=== PATIENT | female | born 1995 | race Caucasian/White ===

== ENCOUNTER 2017-11-01 10:12 | Emergency (ER) | payer OTHER ==
[2017-11-01 11:12] LABS: HEMATOCRIT 39.8 % (36.0-47.0); HEMOGLOBIN 12.4 g/dl (12.0-15.5); MEAN CORPUSCULAR HEMOGLOBIN 22.7 pg (27.0-33.0); MEAN CORPUSCULAR HGB CONC 31.2 g/dl (32.0-36.5); MEAN CORPUSCULAR VOLUME 72.8 fl (80.0-96.0); PLATELET COUNT, AUTOMATED 329 10^3/uL (150-450); RED BLOOD COUNT 5.47 10^6/uL (4.00-5.40); RED CELL DISTRIBUTION WIDTH 15.1 % (11.5-14.5); WHITE BLOOD COUNT 8.8 10^3/uL (4.0-10.0)
[2017-11-01 11:35] LABS: HCG, SERUM QUANTITATIVE 43 MIU/ML
== END 2017-11-01 13:13 | disposition home or self-care (01) ==
LOC: M ED 10:12
DX: O20.0 Threatened abortion (principal); Z88.2 Allergy status to sulfonamides; Z79.899 Other long term (current) drug therapy
CPT/HCPCS: 76801

== ENCOUNTER → 2017-11-02 | Outpatient (CLI) | payer OTHER ==
[2017-11-03 11:17] LABS: HCG, SERUM QUANTITATIVE 28 MIU/ML
== END ==
LOC: M LAB 14:59
DX: N93.8 Other specified abnormal uterine and vaginal bleeding (principal)
CPT/HCPCS: 84702

== ENCOUNTER → 2018-08-28 | Outpatient (CLI) | payer OTHER ==
[~2018-08-28] MED LIST: LEXA1TAB2 PO
[2018-08-28 14:00] LABS: ESTRADIOL 212.8 PG/ML; LUTEINIZING HORMONE 27.7 mIU/mL; PROGESTERONE 16.93 NG/ML
== END ==
LOC: M LAB 12:36
PROVIDERS: ATTEND Obstetrics & Gynecology Reproductive Endocrinology
DX: E28.9 Ovarian dysfunction, unspecified (principal)

== ENCOUNTER → 2018-09-19 | Outpatient (REF) | payer OTHER ==
[2018-09-19 12:57] LABS: ESTRADIOL 261.4 PG/ML; HCG, SERUM QUANTITATIVE < 1.0 MIU/ML; LUTEINIZING HORMONE 10.3 mIU/mL; PROGESTERONE 4.01 NG/ML; THYROID STIMULATING HORMONE 0.957 uIU/ML (0.358-3.740)
[2018-09-19 12:58] LABS: FOLLICLE STIMULATING HORMONE 7.1 mIU/mL
== END ==
LOC: M LABDRAW1 08:58
PROVIDERS: ATTEND Obstetrics & Gynecology Reproductive Endocrinology
DX: E28.9 Ovarian dysfunction, unspecified (principal)

== ENCOUNTER → 2018-09-24 | Outpatient (CLI) | payer OTHER ==
[2018-09-24 11:36] LABS: HCG, SERUM QUANTITATIVE < 1.0 MIU/ML
[2018-09-24 12:59] LABS: PROGESTERONE 0.46 NG/ML
[2018-09-24 13:00] LABS: LUTEINIZING HORMONE 7.5 mIU/mL
[2018-09-24 13:01] LABS: ESTRADIOL 550.8 PG/ML
[2018-09-24 13:02] LABS: FOLLICLE STIMULATING HORMONE 5.9 mIU/mL
== END ==
LOC: M LAB 10:16
PROVIDERS: ATTEND Obstetrics & Gynecology Reproductive Endocrinology
DX: E28.9 Ovarian dysfunction, unspecified (principal)

== ENCOUNTER → 2018-10-16 | Outpatient (CLI) | payer OTHER ==
[2018-10-16 09:36] LABS: ESTRADIOL 58.5 PG/ML; FOLLICLE STIMULATING HORMONE 10.7 mIU/mL; HCG, SERUM QUANTITATIVE < 1.0 MIU/ML; LUTEINIZING HORMONE 9.4 mIU/mL; PROGESTERONE 0.32 NG/ML
== END ==
LOC: M LAB 08:22
PROVIDERS: ATTEND Obstetrics & Gynecology Reproductive Endocrinology
DX: E28.9 Ovarian dysfunction, unspecified (principal)

== ENCOUNTER → 2018-10-22 | Outpatient (CLI) | payer OTHER ==
[2018-10-22 12:26] LABS: ESTRADIOL 45.5 PG/ML; LUTEINIZING HORMONE 11.9 mIU/mL; PROGESTERONE 0.21 NG/ML
== END ==
LOC: M LAB 11:04
PROVIDERS: ATTEND Obstetrics & Gynecology Reproductive Endocrinology
DX: E28.9 Ovarian dysfunction, unspecified (principal)

== ENCOUNTER → 2018-10-24 | Outpatient (CLI) | payer OTHER ==
[2018-10-24 12:12] LABS: ESTRADIOL 119.8 PG/ML; LUTEINIZING HORMONE 11.5 mIU/mL; PROGESTERONE 0.24 NG/ML
== END ==
LOC: M LAB 11:01
PROVIDERS: ATTEND Obstetrics & Gynecology Reproductive Endocrinology
DX: E28.9 Ovarian dysfunction, unspecified (principal)

== ENCOUNTER → 2018-11-08 | Outpatient (CLI) | payer OTHER ==
[2018-11-08 09:54] LABS: HCG, SERUM QUANTITATIVE < 1.0 MIU/ML
[2018-11-08 10:02] LABS: PROGESTERONE 3.09 NG/ML
== END ==
LOC: M LAB 09:00
PROVIDERS: ATTEND Obstetrics & Gynecology Reproductive Endocrinology
DX: E28.9 Ovarian dysfunction, unspecified (principal)

== ENCOUNTER → 2018-11-19 | Outpatient (CLI) | payer OTHER ==
[2018-11-19 12:20] LABS: ESTRADIOL 83.6 PG/ML; LUTEINIZING HORMONE 0.8 mIU/mL; PROGESTERONE 0.21 NG/ML
== END ==
LOC: M LAB 11:14
PROVIDERS: ATTEND Obstetrics & Gynecology Reproductive Endocrinology
DX: E28.9 Ovarian dysfunction, unspecified (principal)

== ENCOUNTER → 2018-11-21 | Outpatient (CLI) | payer OTHER ==
[2018-11-21 12:02] LABS: ESTRADIOL 67.4 PG/ML; LUTEINIZING HORMONE 1.8 mIU/mL; PROGESTERONE 0.21 NG/ML
== END ==
LOC: M LAB 08:07
PROVIDERS: ATTEND Obstetrics & Gynecology Reproductive Endocrinology
DX: E28.9 Ovarian dysfunction, unspecified (principal)

== ENCOUNTER → 2018-11-23 | Outpatient (CLI) | payer OTHER ==
[2018-11-23 11:51] LABS: ESTRADIOL 25.7 PG/ML; LUTEINIZING HORMONE 2.2 mIU/mL; PROGESTERONE 0.26 NG/ML
== END ==
LOC: M LAB 10:32
PROVIDERS: ATTEND Obstetrics & Gynecology Reproductive Endocrinology
DX: E28.9 Ovarian dysfunction, unspecified (principal)

== ENCOUNTER → 2018-12-07 | Outpatient (CLI) | payer OTHER ==
[2018-12-07 12:28] LABS: HCG, SERUM QUANTITATIVE < 1.0 MIU/ML
[2018-12-07 12:35] LABS: PROGESTERONE 3.57 NG/ML
== END ==
LOC: M LAB 11:12
PROVIDERS: ATTEND Obstetrics & Gynecology Reproductive Endocrinology
DX: Z32.00 Encounter for pregnancy test, result unknown (principal)

== ENCOUNTER → 2018-12-14 | Outpatient (CLI) | payer OTHER ==
[~2018-12-14] MED LIST changes: +METF500T13; +PERC5TAB12 PO
[2018-12-14 15:12] LABS: HCG, SERUM QUANTITATIVE < 1.0 MIU/ML; THYROID STIMULATING HORMONE 0.944 uIU/ML (0.358-3.740)
[2018-12-14 15:14] LABS: ESTRADIOL 33.4 PG/ML; PROGESTERONE 0.35 NG/ML
== END ==
LOC: M LAB 13:21
PROVIDERS: ATTEND Obstetrics & Gynecology Reproductive Endocrinology
DX: E28.9 Ovarian dysfunction, unspecified (principal)

== ENCOUNTER → 2018-12-19 | Outpatient (CLI) | payer OTHER ==
[~2018-12-19] MED LIST changes: -METF500T13; -PERC5TAB12 PO
[2018-12-19 10:28] LABS: ESTRADIOL 675.9 PG/ML; LUTEINIZING HORMONE 2.1 mIU/mL; PROGESTERONE 0.21 NG/ML
== END ==
LOC: M LAB 09:27
PROVIDERS: ATTEND Obstetrics & Gynecology Reproductive Endocrinology
DX: E28.9 Ovarian dysfunction, unspecified (principal)

== ENCOUNTER → 2019-01-03 | Outpatient (CLI) | payer OTHER ==
[2019-01-03 11:57] LABS: HCG, SERUM QUANTITATIVE < 1.0 MIU/ML
[2019-01-03 12:00] LABS: LUTEINIZING HORMONE 3.8 mIU/mL; PROGESTERONE 0.22 NG/ML
[2019-01-03 12:01] LABS: ESTRADIOL 27.8 PG/ML; FOLLICLE STIMULATING HORMONE 6.1 mIU/mL
== END ==
LOC: M LAB 10:56
PROVIDERS: ATTEND Obstetrics & Gynecology Reproductive Endocrinology
DX: E28.9 Ovarian dysfunction, unspecified (principal)

== ENCOUNTER → 2019-01-07 | Outpatient (CLI) | payer OTHER ==
[2019-01-07 16:01] LABS: ESTRADIOL 190.8 PG/ML; LUTEINIZING HORMONE 0.3 mIU/mL; PROGESTERONE 0.21 NG/ML
== END ==
LOC: M LAB 14:39
PROVIDERS: ATTEND Obstetrics & Gynecology Reproductive Endocrinology
DX: E28.9 Ovarian dysfunction, unspecified (principal)

== ENCOUNTER → 2019-01-09 | Outpatient (CLI) | payer OTHER ==
[2019-01-09 11:37] LABS: ESTRADIOL 307.8 PG/ML; LUTEINIZING HORMONE 0.1 mIU/mL; PROGESTERONE 0.21 NG/ML
== END ==
LOC: M LAB 10:42
PROVIDERS: ATTEND Obstetrics & Gynecology Reproductive Endocrinology
DX: E28.9 Ovarian dysfunction, unspecified (principal)

== ENCOUNTER → 2019-01-11 | Outpatient (CLI) | payer OTHER ==
[2019-01-11 11:43] LABS: ESTRADIOL 715.4 PG/ML; LUTEINIZING HORMONE 0.3 mIU/mL; PROGESTERONE 0.24 NG/ML
== END ==
LOC: M LAB 10:10
PROVIDERS: ATTEND Obstetrics & Gynecology Reproductive Endocrinology
DX: E28.9 Ovarian dysfunction, unspecified (principal)

== ENCOUNTER → 2019-01-24 | Outpatient (CLI) | payer OTHER ==
[2019-01-24 12:08] LABS: ESTRADIOL 22.1 PG/ML; PROGESTERONE 0.35 NG/ML
== END ==
LOC: M LAB 10:17
PROVIDERS: ATTEND Obstetrics & Gynecology Reproductive Endocrinology
DX: E28.9 Ovarian dysfunction, unspecified (principal)

== ENCOUNTER → 2019-01-29 | Outpatient (CLI) | payer OTHER ==
[2019-01-29 11:28] LABS: ESTRADIOL 336.9 PG/ML; LUTEINIZING HORMONE 0.8 mIU/mL; PROGESTERONE 0.4 NG/ML
== END ==
LOC: M LAB 10:07
PROVIDERS: ATTEND Obstetrics & Gynecology Reproductive Endocrinology
DX: E28.9 Ovarian dysfunction, unspecified (principal)

== ENCOUNTER → 2019-02-01 | Outpatient (CLI) | payer OTHER ==
[2019-02-01 11:27] LABS: ESTRADIOL 842.7 PG/ML; LUTEINIZING HORMONE 0.6 mIU/mL; PROGESTERONE 2.4 NG/ML
== END ==
LOC: M LAB 09:50
PROVIDERS: ATTEND Obstetrics & Gynecology Reproductive Endocrinology
DX: E28.9 Ovarian dysfunction, unspecified (principal)

== ENCOUNTER → 2019-02-11 | Outpatient (CLI) | payer OTHER ==
[2019-02-11 10:07] LABS: PROGESTERONE 59.9 NG/ML
== END ==
LOC: M LAB 08:49
PROVIDERS: ATTEND Obstetrics & Gynecology Reproductive Endocrinology
DX: Z32.00 Encounter for pregnancy test, result unknown (principal)

== ENCOUNTER → 2019-02-21 | Outpatient (CLI) | payer OTHER ==
[2019-02-21 11:42] LABS: ESTRADIOL 2723.9 PG/ML; PROGESTERONE 64.46 NG/ML; THYROID STIMULATING HORMONE 1.89 uIU/ML (0.358-3.740)
== END ==
LOC: M LAB 09:23
PROVIDERS: ATTEND Obstetrics & Gynecology Reproductive Endocrinology
DX: O09.00 Supervision of pregnancy with history of infertility, unspecified trimester (principal); Z3A.00 Weeks of gestation of pregnancy not specified

== ENCOUNTER 2019-03-07 20:33 | Emergency (ER) | payer OTHER ==
[~2019-03-07] VITALS: Ht 177.8 cm; Wt 113.6 kg
[2019-03-07] MEDS ORDERED: METF500T13 (20:49)
[2019-03-07] MEDS ORDERED: fentaNYL 100 MCG/2 ML INJECTION (J3010) IV ONE ×2 (21:15→22:30)
[2019-03-07] MEDS ORDERED: ONDANSETRON 4MG/2ML VIAL (J2405) IV ONE (21:15)
[2019-03-07] MEDS ORDERED: NS 1,000 ML IV ONE (21:15)
[2019-03-07] MEDS ORDERED: DERMABOND TOPICAL SKIN ADHESIVE TOP ONE (21:15)
[2019-03-07 21:29] LABS: BASO # 0.1 10^3/uL (0.0-0.2); BASO % 0.3 % (0.0-1.0); EOS # 0.1 10^3/uL (0.0-0.5); EOS % 0.7 % (0.0-3.0); HEMATOCRIT 35.5 % (36.0-47.0); HEMOGLOBIN 10.8 g/dl (12.0-15.5); LYMPH # 3.3 10^3/uL (1.5-5.0); LYMPH % 16.1 % (24.0-44.0); MEAN CORPUSCULAR HEMOGLOBIN 23.4 pg (27.0-33.0); MEAN CORPUSCULAR HGB CONC 30.4 g/dl (32.0-36.5); MEAN CORPUSCULAR VOLUME 76.8 fl (80.0-96.0); MONO # 1.2 10^3/uL (0.0-0.8); MONO % 5.7 % (0.0-5.0); NEUTROPHILS # 15.7 10^3/uL (1.5-8.5); NEUTROPHILS % 76.6 % (36.0-66.0); PLATELET COUNT, AUTOMATED 412 10^3/uL (150-450); RED BLOOD COUNT 4.62 10^6/uL (4.00-5.40); WHITE BLOOD COUNT 20.5 10^3/uL (4.0-10.0)
[2019-03-07 22:10] LABS: BLOOD UREA NITROGEN 6 MG/DL (7-18); CALCIUM LEVEL 9.1 MG/DL (8.5-10.1); CARBON DIOXIDE LEVEL 25 MEQ/L (21-32); CHLORIDE LEVEL 106 MEQ/L (98-107); CREATININE FOR GFR 0.74 MG/DL (0.55-1.30); GLOMERULAR FILTRATION RATE > 60.0 (>60); GLUCOSE, FASTING 117 MG/DL (70-100); HCG, SERUM QUANTITATIVE 17844 MIU/ML; POTASSIUM SERUM 4.2 MEQ/L (3.5-5.1); SODIUM LEVEL 141 MEQ/L (136-145)
--- NOTE | 2019-03-07 22:27 | REPVR ---
PROCEDURE INFORMATION: Exam: US , Transvaginal Exam date and time: 03/07/2019 10:03 PM Clinical history: 24 years old, female; complicated by abdominal or pelvic pain; Lower; First trimester; Gestational age or lmp: 01/21/19; ; Prior surgery; Surgery date: 6+ months; Surgery type: Prior ; Additional info: Abd pain, 6wks TECHNIQUE: Imaging protocol: Real-time transvaginal obstetrical ultrasound of the maternal pelvis and a first trimester with image documentation. Transvaginal imaging was used for better evaluation of the fetus and adnexa. COMPARISON: No relevant prior studies available. FINDINGS: Other findings: Bilaterally enlarged ovaries contain numerous simple cysts. Normal flow. GESTATION: Gestation: 2 apparent sacs demonstrated within the uterus. The larger of the 2 sacs contains a pole with a crown-rump length measuring 2.9 mm. A second smaller sac versus lydia-gestational bleed demonstrated adjacent to the larger sac without evidence of a pole or yolk sac. Heart rate: No heart rate detected. No yolk sac demonstrated. BIOMETRY: Estimated gestational age: Gestational age is 5 weeks 6 days using crown-rump length. MATERNAL: Uterus: Uterus measures 10.8 x 4.8 x 7.3 cm. Left adnexa: Large isoechoic to uterus mass demonstrated on the left lateral aspect of the uterus measuring 12 x 6.9 x 8.7 cm filled with fine homogeneous echoes. Finding may represent a large endometrioma. Small echogenic focus in the left ovary likely represents an incidental dermoid. IMPRESSION: 1. Large isoechoic to uterus mass demonstrated on the left lateral aspect of the uterus measuring 12 x 6.9 x 8.7 cm filled with fine homogeneous echoes. Finding may represent a large endometrioma. 2. Gestational sac containing a crown-rump length was estimated gestation of 5 weeks 6 days in this patient who is 6 weeks 3 days using LMP. There is no heart rate consistent with early failure. 3. Second site demonstrated without evidence of a pole or yolk sac. Differential includes in an embryonic versus a lydia-gestational bleed. Electronically signed by: Fabricio Colunga On 03/07/2019 22:26:42 PM
[2019-03-07] MEDS ORDERED: PERC5TAB12 PO (22:59)
[2019-03-07 23:00] VITALS: BP 129/79
[2019-03-07] MEDS ORDERED: OXYCODONE/APAP 5MG/325MG(BULK FOR ED) 1 TABLET PO ONE (23:15)
--- NOTE | 2019-03-08 18:58 | ECGEPIP ---
[facility] - ED Test Date: 2019-03-07 Pat Name: HERMINIA JOHNSON Department: Room: - Gender: Female Insurance Biller: lainey : [id number] Requested By: HALINA Young Order Number: [id number] Reading MD: Josiane Benedict Measurements Intervals [place] Rate: 85 P: MD: 0 QRS: 26 QRSD: 75 T: 30 QT: 333 QTc: 396 Interpretive Statements SINUS RHYTHM NSTTW abnormalities NO PRIOR Electronically Signed on 03-08-2019 18:58:24 EST by Josiane Benedict
== END 2019-03-07 23:21 | disposition home or self-care (01) ==
LOC: M ED 20:33
DX: O03.4 Incomplete spontaneous abortion without complication (principal); O9A.211 Injury, poisoning and certain other consequences of external causes complicating pregnancy, first trimester; S01.21XA Laceration without foreign body of nose, initial encounter; W19.XXXA Unspecified fall, initial encounter; Y92.89 Other specified places as the place of occurrence of the external cause; Z88.2 Allergy status to sulfonamides; Z79.899 Other long term (current) drug therapy; Z79.84 Long term (current) use of oral hypoglycemic drugs
CPT/HCPCS: 12011; 76801; 76817; 80048; 84443; 84702; 85025; 86850; 86900; 86901; 93005; 93041; 93976; 94760; 96374; 96376; 99285; J3010

== ENCOUNTER → 2019-03-26 | Outpatient (CLI) | payer OTHER ==
[~2019-03-26] MED LIST changes: +METF500T13; +PERC5TAB12 PO
== END ==
LOC: M LAB 09:14
PROVIDERS: ATTEND Obstetrics & Gynecology Reproductive Endocrinology
DX: O02.81 Inappropriate change in quantitative human chorionic gonadotropin (hCG) in early pregnancy (principal)

== ENCOUNTER → 2019-04-04 | Outpatient (CLI) | payer OTHER | LOC: M LAB 09:13 | PROVIDERS: ATTEND Obstetrics & Gynecology Reproductive Endocrinology | DX: O02.81 Inappropriate change in quantitative human chorionic gonadotropin (hCG) in early pregnancy (principal) ==

== ENCOUNTER → 2019-04-22 | Outpatient (CLI) | payer OTHER | LOC: M LAB 15:05 | PROVIDERS: ATTEND Obstetrics & Gynecology Reproductive Endocrinology | DX: E28.9 Ovarian dysfunction, unspecified (principal) ==

== ENCOUNTER → 2019-04-30 | Outpatient (CLI) | payer OTHER | LOC: M LAB 09:13 | PROVIDERS: ATTEND Obstetrics & Gynecology Reproductive Endocrinology | DX: O02.1 Missed abortion (principal) ==

== ENCOUNTER → 2019-05-09 | Outpatient (CLI) | payer OTHER ==
[2019-05-09 11:31] LABS: PROGESTERONE 5.14 NG/ML
== END ==
LOC: M LAB 10:27
PROVIDERS: ATTEND Obstetrics & Gynecology Reproductive Endocrinology
DX: E28.9 Ovarian dysfunction, unspecified (principal)

== ENCOUNTER → 2019-05-23 | Outpatient (CLI) | payer OTHER | LOC: M LAB 09:12 | PROVIDERS: ATTEND Obstetrics & Gynecology Reproductive Endocrinology | DX: E28.9 Ovarian dysfunction, unspecified (principal) ==

== ENCOUNTER → 2019-06-06 | Outpatient (CLI) | payer OTHER | LOC: M LAB 09:17 | PROVIDERS: ATTEND Obstetrics & Gynecology Reproductive Endocrinology | DX: Z32.01 Encounter for pregnancy test, result positive (principal) ==

== ENCOUNTER → 2019-06-11 | Outpatient (REF) | payer OTHER ==
[2019-06-11 21:51] LABS: INFLUENZA A AMPLIFICATION POSITIVE (NEGATIVE); INFLUENZA B AMPLIFICATION NEGATIVE (NEGATIVE)
== END ==
LOC: M LAB 21:09
PROVIDERS: ATTEND Physician Assistant
DX: J11.1 Influenza due to unidentified influenza virus with other respiratory manifestations (principal)

== ENCOUNTER → 2019-06-25 | Outpatient (CLI) | payer OTHER ==
[2019-06-25 11:07] LABS: HCG, SERUM QUANTITATIVE 2 MIU/ML
[2019-06-25 11:40] LABS: LUTEINIZING HORMONE 3.1 mIU/mL; PROGESTERONE 0.24 NG/ML
[2019-06-25 11:41] LABS: ESTRADIOL < 19.0 PG/ML; FOLLICLE STIMULATING HORMONE 2.7 mIU/mL
== END ==
LOC: M LAB 10:10
PROVIDERS: ATTEND Obstetrics & Gynecology Reproductive Endocrinology
DX: E28.9 Ovarian dysfunction, unspecified (principal)

== ENCOUNTER → 2019-07-01 | Outpatient (CLI) | payer OTHER ==
[2019-07-01 11:56] LABS: ESTRADIOL 36.7 PG/ML; PROGESTERONE 0.27 NG/ML
== END ==
LOC: M LAB 10:43
PROVIDERS: ATTEND Obstetrics & Gynecology Reproductive Endocrinology
DX: E28.9 Ovarian dysfunction, unspecified (principal)

== ENCOUNTER → 2019-07-03 | Outpatient (CLI) | payer OTHER ==
[2019-07-03 11:26] LABS: ESTRADIOL 98.3 PG/ML; LUTEINIZING HORMONE 0.7 mIU/mL; PROGESTERONE 0.37 NG/ML
== END ==
LOC: M LAB 10:13
PROVIDERS: ATTEND Obstetrics & Gynecology Reproductive Endocrinology
DX: E28.9 Ovarian dysfunction, unspecified (principal)

== ENCOUNTER → 2019-07-05 | Outpatient (CLI) | payer OTHER ==
[2019-07-05 11:36] LABS: ESTRADIOL 309.6 PG/ML; LUTEINIZING HORMONE 1.1 mIU/mL; PROGESTERONE 0.61 NG/ML
== END ==
LOC: M LAB 09:24
PROVIDERS: ATTEND Obstetrics & Gynecology Reproductive Endocrinology
DX: E28.9 Ovarian dysfunction, unspecified (principal)

== ENCOUNTER → 2019-07-18 | Outpatient (CLI) | payer OTHER ==
[2019-07-18 12:21] LABS: ESTRADIOL 1137.7 PG/ML; PROGESTERONE 137.22 NG/ML
== END ==
LOC: M LAB 10:48
PROVIDERS: ATTEND Obstetrics & Gynecology Reproductive Endocrinology
DX: E28.9 Ovarian dysfunction, unspecified (principal)

== ENCOUNTER → 2019-07-22 | Outpatient (CLI) | payer OTHER ==
[2019-07-22 10:19] LABS: PROGESTERONE 238.53 NG/ML
== END ==
LOC: M LAB 08:45
PROVIDERS: ATTEND Obstetrics & Gynecology Reproductive Endocrinology
DX: Z32.00 Encounter for pregnancy test, result unknown (principal)

== ENCOUNTER → 2019-07-24 | Outpatient (CLI) | payer OTHER ==
[2019-07-24 10:07] LABS: THYROID STIMULATING HORMONE 2.72 uIU/ML (0.358-3.740)
[2019-07-24 12:34] LABS: ESTRADIOL 3028.9 PG/ML; PROGESTERONE 246.65 NG/ML
== END ==
LOC: M LAB 08:55
PROVIDERS: ATTEND Obstetrics & Gynecology Reproductive Endocrinology
DX: Z32.01 Encounter for pregnancy test, result positive (principal)

== ENCOUNTER → 2019-07-31 | Outpatient (CLI) | payer OTHER ==
[2019-07-31 09:42] LABS: THYROID STIMULATING HORMONE 2.37 uIU/ML (0.358-3.740)
[2019-07-31 09:55] LABS: ESTRADIOL 4938.2 PG/ML; PROGESTERONE 238.16 NG/ML
== END ==
LOC: M LAB 08:21
PROVIDERS: ATTEND Obstetrics & Gynecology Reproductive Endocrinology
DX: O09.00 Supervision of pregnancy with history of infertility, unspecified trimester (principal); Z3A.00 Weeks of gestation of pregnancy not specified

== ENCOUNTER → 2019-08-07 | Outpatient (CLI) | payer OTHER ==
[2019-08-07 10:13] LABS: ESTRADIOL 4054.5 PG/ML; PROGESTERONE 162.01 NG/ML
== END ==
LOC: M LAB 08:44
PROVIDERS: ATTEND Obstetrics & Gynecology Reproductive Endocrinology
DX: Z32.01 Encounter for pregnancy test, result positive (principal)